=== PATIENT | female | born 1980 | race Caucasian/White ===

== ENCOUNTER 2017-01-03 17:57 | Emergency (ER) | payer OTHER ==
--- NOTE | 2017-01-03 18:26 | XRAY Preliminary Report ---
Exam: XR Chest 2 View PA/LAT IMPRESSION: 1. Normal lung volumes and heart size. 2. There is increased opacity within the lingula which is suspicious for pneumonia. 3. There is no evidence of pneumothorax. [facility] SITE ID: [id number]
--- NOTE | 2017-01-03 18:29 | XRAY Report ---
EXAM: CHEST RADIOGRAPHY EXAM DATE: 01/03/2017 06:12 PM. CLINICAL HISTORY: Cough/fatigue. COMPARISON: None. TECHNIQUE: 2 views. FINDINGS: Lungs/Pleura: There is increased opacity within the lingula. There is no evidence of pleural effusion . No pneumothorax. Mediastinum: Heart and mediastinal contours are unremarkable. Other: None. IMPRESSION: 1. Normal lung volumes and heart size. 2. There is increased opacity within the lingula which is suspicious for pneumonia. 3. There is no evidence of pneumothorax. [facility] Referring Provider Line: [phone] SITE ID: [id number]
--- NOTE | 2017-01-03 21:16 | ED Physician Documentation ---
PD HPI URI - Stated complaint Stated Complaint: COUGH/FATIGUED - Chief complaint Chief Complaint: Heent - History obtained from History obtained from: Patient - History of Present Illness Timing - onset: How many days ago (4) Timing duration: Days (4) Timing details: Abrupt onset, Still present, Still present in ED Associated symptoms: Chills, Dry cough, Dyspnea. No: Fever, Hemoptysis, Chest pain (hurts anteriorly with coughing) Contributing factors: No: Sick contact, Travel, Immunocompromised, COPD / asthma Improves by: Rest Worsened by: Activity, Breathing Similar symptoms before: Has not had sx before Recently seen: Not recently seen Review of Systems Constitutional: reports: Chills, Myalgias. denies: Fever Nose: reports: Congestion Throat: denies: Sore throat Cardiac: reports: Chest pain / pressure (with coughing today). denies: Palpitations Respiratory: reports: Dyspnea, Cough, Wheezing GI: denies: Nausea, Vomiting, Diarrhea Skin: denies: Rash, Lesions Musculoskeletal: denies: Neck pain, Back pain Neurologic: denies: Near syncope, Altered mental status PD PAST MEDICAL HISTORY - Past Medical History Cardiovascular: None Respiratory: None Neuro: None Endocrine/Autoimmune: None - Past Surgical History Past Surgical History: No - Present Medications Home Medications: Ambulatory Orders Medication Instructions Recorded Confirmed Carisoprodol [Soma] 350 mg PO Q6H PRN #15 tablet 03/09/14 Hydrocodone/Acetaminophen 1 each PO Q6H PRN #15 tablet 03/09/14 [Hydrocodon-Acetaminophen 5-300] Azithromycin [Zithromax] 250 mg PO DAILY #4 tablet 01/03/17 Dexamethasone [Decadron] 4 mg PO DAILY #5 tablet 01/03/17 guaiFENesin/CODEINE [Robitussin AC] 10 ml PO Q6H PRN #240 ml 01/03/17 - Allergies Allergies/Adverse Reactions: Allergies Allergy/AdvReac Type Severity Reaction Status Date / Time No Known Drug Allergies Allergy Verified 03/09/14 07:41 - Social History Does the pt smoke?: No Smoking Status: Never smoker Does the pt drink ETOH?: No Does the pt have substance abuse?: No PD ED PE NORMAL - Vitals Vital signs reviewed: Yes - General General: Alert and oriented X 3, No acute distress (frequent cough with apparent discomfort in chest with coughing. ), Well developed/nourished - HEENT HEENT: Pharynx benign - Neck Neck: Supple, no meningeal sign, No adenopathy - Cardiac Cardiac: RRR, No murmur - Respiratory Respiratory: Clear bilaterally - Abdomen Abdomen: Normal bowel sounds, Soft, Non distended - Back Back: No CVA TTP - Derm Derm: Normal color, Warm and dry - Extremities Extremities: No tenderness to palpate, Normal ROM s pain, No edema, No calf tenderness / cord - Neuro Neuro: Alert and oriented X 3, No motor deficit, Normal speech Results - Vitals Vitals: Oxygen O2 Source Room air - Rads (name of study) CXR Radiology: Prelim report reviewed (some density in the lingula suggesting pneumonia) PD MEDICAL DECISION MAKING - ED course Complexity details: reviewed results (CXR suggests early/small infiltrate.), considered differential, d/w patient Departure - Departure Disposition: Home, Self Care Clinical Impression: Acute bronchitis Qualifiers: Bronchitis organism: unspecified organism Qualified Code(s): J20.9 - Acute bronchitis, unspecified Pneumonia Qualifiers: Pneumonia type: due to unspecified organism Laterality: left Lung location: lower lobe of lung Qualified Code(s): J18.1 - Lobar pneumonia, unspecified organism Condition: Stable Record reviewed to determine appropriate education?: Yes Instructions: ED Pneumonia Adult Prescriptions: Dexamethasone [Decadron] 4 mg PO DAILY #5 tablet guaiFENesin/CODEINE [Robitussin AC] 10 ml PO Q6H PRN #240 ml PRN Reason: Cough Azithromycin [Zithromax] 250 mg PO DAILY #4 tablet Comments: Drink lots of fluids. Tylenol or ibuprofen if needed for fevers and aches. For the infection use Zithromax daily and Decadron daily for infection and inflammation. If you feel wheezy then you can use your inhaler that you have at home. For pain and cough he can use hydrocodone or codeine cough syrup every 4-6 hours. Activity as able. Recheck if not improving over the next several days. Even once better, the cough itself may persist for several weeks before fully going away. Discharge Date/Time: 01/03/17 21:58
[2017-01-03] MEDS ORDERED: DEXAMETHASONE 10 MG/ML VIAL PO STA (21:28)
[2017-01-03] MEDS ORDERED: HYDROcod/ACET 5/325 Prepack 6 PO ONE ×2 (21:28→21:32)
[2017-01-03] MEDS ORDERED: AZITHROMYCIN 250 MG TABLET PO STA (21:28)
[2017-01-03] MEDS ORDERED: AZITHROMYCIN 250 MG TABLET PO ONE (21:31)
[2017-01-03] MEDS ORDERED: DEXAMETHASONE 10 MG/ML VIAL ONE (21:32)
[2017-01-03] MEDS ORDERED: CHERRY SYRUP 10 ML UDC PO ONE (21:32)
[2017-01-03 21:56] VITALS: BP 118/80
== END 2017-01-03 21:58 | disposition home or self-care (01) ==
LOC: ED 17:57
DX: J20.9 Acute bronchitis, unspecified (principal); J18.9 Pneumonia, unspecified organism
CPT/HCPCS: 71020; 99283; A9270